=== PATIENT | female | born 1980 | race Caucasian/White ===

== ENCOUNTER 2020-12-21 23:19 | Emergency (ER) | payer OTHER ==
[~2020-12-21 23:19] MED LIST: ANTIVERT25 MG PO; HYOSCYAMINE0.125 MG PO; INDERAL20 MG PO; KLONOPIN0.5 MG PO; LATUDA20 MG PO; LYRICA75 MG PO; NAPROXEN500 MG PO; ONDANSETRON ODT4 MG SL; PERCOCET 10/321 EACH PO; PHENERGAN25 M1 PO; PROZAC20 MG PO; TESSALON PERLE100 M1 PO; TOPROL XL 50 MG50 MG PO; TRAZODONE 50MG50 MG PO; ZOFRAN8 MG PO; ZPAK PO
[2020-12-22 00:17] LABS: BASOPHIL 0.5 % (0-2); EOSINOPHIL 3.4 % (0-5); HCT 40.6 % (37.0-47.0); HGB 13.8 g/dl (12.5-16.0); LYMPHOCYTE 36.7 % (15-48); MCH 31.9 pg (25.0-31.0); MCV 93.8 fL (78.0-100.0); MONOCYTE 6.2 % (0-12); MPV 10.4 fL (6.0-9.5); NEUTROPHIL 52.9 % (41-80); NRBC 0; PLT 322 K/uL (150-400); RBC 4.33 M/uL (4.20-5.40); RDW 12.7 % (11.5-14.0); WBC 10.8 K/uL (4.0-10.5)
[2020-12-22 00:47] LABS: ALBUMIN 3.6 g/dL (3.4-5.0); BILIRUBIN - TOTAL 0.5 mg/dL (0.2-1.0); BUN/CREAT RATIO (CALC) 19.7 RATIO; CREATININE 0.66 mg/dL (0.51-0.95); GLOBULIN (CALCULATION) 3.6 g/dL; POTASSIUM 4.3 mmol/L (3.5-5.1); TOTAL PROTEIN 7.2 g/dL (6.4-8.2)
[2020-12-22 00:58] LABS: BILIRUBIN NEGATIVE (NEGATIVE); BLOOD 2+ Ery/uL (NEGATIVE); CLARITY CLEAR (CLEAR); COLOR YELLOW (YELLOW); GLUCOSE (U) NORMAL (NORMAL); LEUKOCYTES NEGATIVE Leu/uL (NEGATIVE); NITRITE NEGATIVE (NEGATIVE); PROTEIN NEGATIVE (NEGATIVE); UROBILINOGEN 0.2 mg/dL (0.2-1.0)
[2020-12-22 01:09] LABS: BACTERIA 1+; URINARY WBC RARE
[2020-12-22] MEDS ORDERED: NAPROSYN375 MG PO (02:16)
[2020-12-22] MEDS ORDERED: KEFLEX250 MG PO (02:16)
== END 2020-12-22 02:20 | disposition home or self-care (01) ==
LOC: FER 23:19
PROVIDERS: Emergency Medicine
DX: N20.0 Calculus of kidney (principal); Z90.49 Acquired absence of other specified parts of digestive tract; Z88.2 Allergy status to sulfonamides
CPT/HCPCS: 36415; 80053; 81001; 82150; 85025; J2270; J2405; J7030

== ENCOUNTER 2021-01-05 06:11 | Emergency (ER) | payer OTHER ==
[~2021-01-05 06:11] MED LIST changes: +KEFLEX250 MG PO; +NAPROSYN375 MG PO
[2021-01-05 06:52] LABS: BASOPHIL 0.4 % (0-2); EOSINOPHIL 1.3 % (0-5); HCT 41.5 % (37.0-47.0); LYMPHOCYTE 23.4 % (15-48); MCH 31.5 pg (25.0-31.0); MCHC 33.7 g/dL (32.0-36.0); MCV 93.3 fL (78.0-100.0); MONOCYTE 6.8 % (0-12); MPV 10.2 fL (6.0-9.5); NEUTROPHIL 67.6 % (41-80); NRBC 0; PLT 357 K/uL (150-400); RBC 4.45 M/uL (4.20-5.40); RDW 12.6 % (11.5-14.0); WBC 14.1 K/uL (4.0-10.5)
[2021-01-05 07:07] LABS: BILIRUBIN - TOTAL 0.7 mg/dL (0.2-1.0); CREATININE 0.65 mg/dL (0.51-0.95); GLOBULIN (CALCULATION) 3.6 g/dL; POTASSIUM 4.1 mmol/L (3.5-5.1); TOTAL PROTEIN 7.6 g/dL (6.4-8.2)
[2021-01-05 08:08] LABS: BILIRUBIN NEGATIVE (NEGATIVE); BLOOD NEGATIVE Ery/uL (NEGATIVE); CLARITY CLEAR (CLEAR); COLOR YELLOW (YELLOW); GLUCOSE (U) NORMAL (NORMAL); LEUKOCYTES NEGATIVE Leu/uL (NEGATIVE); NITRITE NEGATIVE (NEGATIVE); PROTEIN NEGATIVE (NEGATIVE); SPECIFIC GRAVITY 1.025 (1.001-1.030); UROBILINOGEN 0.2 mg/dL (0.2-1.0); pH 5.5 (5.0-9.0)
[2021-01-05 08:10] LABS: AMPHETAMINES NEGATIVE (NEGATIVE); BARBITURATES NEGATIVE (NEGATIVE); ECSTASY (MDMA) NEGATIVE (NEGATIVE); MARIJUANA (THC) NEGATIVE (NEGATIVE); METHADONE NEGATIVE (NEGATIVE); OPIATES POSITIVE (NEGATIVE); OXYCODONE NEGATIVE (NEGATIVE)
[2021-01-05] MEDS ORDERED: ONDANSETRON ODT4 MG PO (08:25)
== END 2021-01-05 08:35 | disposition home or self-care (01) ==
LOC: FER 06:11
PROVIDERS: Emergency Medicine
DX: B34.9 Viral infection, unspecified (principal); R00.0 Tachycardia, unspecified; R06.2 Wheezing; I10 Essential (primary) hypertension; E66.9 Obesity, unspecified; Z79.899 Other long term (current) drug therapy; Z88.2 Allergy status to sulfonamides; Z20.822 Contact with and (suspected) exposure to COVID-19
CPT/HCPCS: 36415; 71045; 80053; 80305; 81003; 82550; 84484; 85025; 93005; J1885; J2405; J7030; U0002

== ENCOUNTER 2021-02-22 14:43 | Emergency (ER) | payer OTHER ==
[~2021-02-22 14:43] MED LIST changes: +ONDANSETRON ODT4 MG PO
[2021-02-22 16:55] LABS: BASOPHIL 0.4 % (0-2); EOSINOPHIL 6.1 % (0-5); HCT 44.5 % (37.0-47.0); HGB 14.7 g/dl (12.5-16.0); LYMPHOCYTE 35.4 % (15-48); MCH 30.9 pg (25.0-31.0); MCV 93.5 fL (78.0-100.0); MONOCYTE 7.5 % (0-12); NEUTROPHIL 50.2 % (41-80); NRBC 0; PLT 354 K/uL (150-400); RBC 4.76 M/uL (4.20-5.40); RDW 12.7 % (11.5-14.0); WBC 8.4 K/uL (4.0-10.5)
[2021-02-22 17:04] LABS: BUN/CREAT RATIO (CALC) 23.8 RATIO; CREATININE 0.63 mg/dL (0.51-0.95)
[2021-02-22 17:50] LABS: CORONAVIRUS 2019 SARS-COV-2 NEGATIVE (NEGATIVE); INFLUENZA A NAA NEGATIVE (NEGATIVE)
== END 2021-02-22 18:25 | disposition home or self-care (01) ==
LOC: FER 14:43
PROVIDERS: Emergency Medicine
DX: J04.0 Acute laryngitis (principal); I10 Essential (primary) hypertension; Z88.8 Allergy status to other drugs, medicaments and biological substances; Z88.5 Allergy status to narcotic agent; Z88.2 Allergy status to sulfonamides; Z20.822 Contact with and (suspected) exposure to COVID-19
CPT/HCPCS: 36415; 71046; 80048; 85025; 87880; J2930; U0002

== ENCOUNTER 2021-04-10 08:31 | Emergency (ER) | payer OTHER ==
[2021-04-10 09:36] LABS: BILIRUBIN 1+ mg/dL (NEGATIVE); BLOOD TRACE-INTACT Ery/uL (NEGATIVE); COLOR YELLOW (YELLOW); GLUCOSE (U) NORMAL (NORMAL); LEUKOCYTES 3+ Leu/uL (NEGATIVE); NITRITE NEGATIVE (NEGATIVE); PROTEIN TRACE (LOW) mg/dL (NEGATIVE); SPECIFIC GRAVITY 1.015 (1.001-1.030)
[2021-04-10 09:39] LABS: CLARITY HAZY (CLEAR)
[2021-04-10 09:48] LABS: BACTERIA 1+; SQUAMOUS EPITHELIAL CELLS 20-50; URINARY RBC RARE
[2021-04-10 09:54] LABS: BASOPHIL 0.5 % (0-2); EOSINOPHIL 3.8 % (0-5); HCT 42.7 % (37.0-47.0); HGB 14.3 g/dl (12.5-16.0); MCH 31.5 pg (25.0-31.0); MCHC 33.5 g/dL (32.0-36.0); MCV 94.1 fL (78.0-100.0); MONOCYTE 8.9 % (0-12); MPV 11.1 fL (6.0-9.5); NEUTROPHIL 53.6 % (41-80); NRBC 0; PLT 281 K/uL (150-400); RBC 4.54 M/uL (4.20-5.40); RDW 12.8 % (11.5-14.0); WBC 8.2 K/uL (4.0-10.5)
[2021-04-10 10:08] LABS: ALBUMIN 3.7 g/dL (3.4-5.0); BUN/CREAT RATIO (CALC) 19.1 RATIO; CREATININE 0.68 mg/dL (0.51-0.95); GLOBULIN (CALCULATION) 3.1 g/dL; POTASSIUM 4.3 mmol/L (3.5-5.1); TOTAL PROTEIN 6.8 g/dL (6.4-8.2)
[2021-04-10] MEDS ORDERED: CEPHALEXIN500 MG PO (12:47)
[2021-04-10] MEDS ORDERED: PYRIDIUM100 MG PO (12:47)
[2021-04-11 20:10] LABS: CHLAMYDIA TRACHOMATIS, NAA Negative (Negative); NEISSERIA GONORRHOEAE, NAA Negative (Negative)
== END 2021-04-10 13:05 | disposition home or self-care (01) ==
LOC: FER 08:31
PROVIDERS: Emergency Medicine
DX: N39.0 Urinary tract infection, site not specified (principal); E11.9 Type 2 diabetes mellitus without complications; Z88.2 Allergy status to sulfonamides
CPT/HCPCS: 36415; 80053; 81001; 83690; 85025; 87088; 87210; 87491; 87591; J2270; J2405

== ENCOUNTER 2021-04-15 13:36 | Emergency (ER) | payer OTHER ==
[~2021-04-15 13:36] MED LIST changes: +CEPHALEXIN500 MG PO; +PYRIDIUM100 MG PO
[2021-04-15] MEDS ORDERED: ONDANSETRON ODT4 MG PO (14:26)
== END 2021-04-15 14:40 | disposition home or self-care (01) ==
LOC: FER 13:36
DX: B34.9 Viral infection, unspecified (principal); I10 Essential (primary) hypertension; E11.9 Type 2 diabetes mellitus without complications; Z88.2 Allergy status to sulfonamides; Z20.822 Contact with and (suspected) exposure to COVID-19
CPT/HCPCS: 99284; U0002

== ENCOUNTER 2021-08-20 12:00 | Emergency (ER) | payer OTHER ==
[2021-08-20 13:24] LABS: BASOPHIL 0.3 % (0-2); EOSINOPHIL 3.7 % (0-5); HCT 44.5 % (37.0-47.0); HGB 15.4 g/dl (12.5-16.0); LYMPHOCYTE 33.3 % (15-48); MCH 32.4 pg (25.0-31.0); MCHC 34.6 g/dL (32.0-36.0); MCV 93.7 fL (78.0-100.0); MONOCYTE 5.5 % (0-12); NEUTROPHIL 56.8 % (41-80); NRBC 0; PLT 380 K/uL (150-400); RBC 4.75 M/uL (4.20-5.40); RDW 12.2 % (11.5-14.0); WBC 14.1 K/uL (4.0-10.5)
[2021-08-20 13:32] LABS: BUN/CREAT RATIO (CALC) 23.2 RATIO; CREATININE 0.69 mg/dL (0.51-0.95)
[2021-08-20 14:04] LABS: BILIRUBIN NEGATIVE (NEGATIVE); BLOOD NEGATIVE Ery/uL (NEGATIVE); CLARITY CLEAR (CLEAR); COLOR YELLOW (YELLOW); GLUCOSE (U) NORMAL (NORMAL); LEUKOCYTES NEGATIVE Leu/uL (NEGATIVE); NITRITE NEGATIVE (NEGATIVE); PROTEIN NEGATIVE (NEGATIVE); SPECIFIC GRAVITY 1.025 (1.001-1.030); UROBILINOGEN 0.2 mg/dL (0.2-1.0); pH 6.5 (5.0-9.0)
[2021-08-20 14:31] LABS: LACTIC ACID 1.2 mmol/L (0.4-1.9)
[2021-08-20] MEDS ORDERED: NAPROXEN500 MG PO (15:45)
[2021-08-20] MEDS ORDERED: KEFLEX250 MG PO (15:45)
[2021-08-20] MEDS ORDERED: BACLOFEN 10MG T10 MG PO (15:45)
== END 2021-08-20 17:00 | disposition home or self-care (01) ==
LOC: FER 12:00
PROVIDERS: Nurse Practitioner Family
DX: L02.411 Cutaneous abscess of right axilla (principal); R53.83 Other fatigue; M54.2 Cervicalgia; E11.9 Type 2 diabetes mellitus without complications; Z87.891 Personal history of nicotine dependence; Z88.0 Allergy status to penicillin; Z88.2 Allergy status to sulfonamides; Z88.6 Allergy status to analgesic agent
CPT/HCPCS: 36415; 71045; 80048; 81003; 83605; 85025; 93005

== ENCOUNTER 2021-08-23 21:16 | Emergency (ER) | payer OTHER ==
[~2021-08-23 21:16] MED LIST changes: +BACLOFEN 10MG T10 MG PO
[2021-08-23 22:36] LABS: BASOPHIL 0.3 % (0-2); EOSINOPHIL 3.6 % (0-5); HCT 39.9 % (37.0-47.0); HGB 13.8 g/dl (12.5-16.0); LYMPHOCYTE 39.1 % (15-48); MCH 32.4 pg (25.0-31.0); MCHC 34.6 g/dL (32.0-36.0); MCV 93.7 fL (78.0-100.0); MONOCYTE 5.9 % (0-12); MPV 10.2 fL (6.0-9.5); NEUTROPHIL 50.9 % (41-80); NRBC 0; PLT 311 K/uL (150-400); RBC 4.26 M/uL (4.20-5.40); RDW 12.1 % (11.5-14.0); WBC 11.9 K/uL (4.0-10.5)
[2021-08-23 22:59] LABS: ALBUMIN 3.7 g/dL (3.4-5.0); BILIRUBIN - TOTAL 0.7 mg/dL (0.2-1.0); BUN/CREAT RATIO (CALC) 22.5 RATIO; CREATININE 0.71 mg/dL (0.51-0.95); GLOBULIN (CALCULATION) 3.1 g/dL; MAGNESIUM 1.9 mg/dL (1.8-2.4); POTASSIUM 4.3 mmol/L (3.5-5.1); TOTAL PROTEIN 6.8 g/dL (6.4-8.2)
[2021-08-23] MEDS ORDERED: ONDANSETRON ODT4 MG PO (23:15)
== END 2021-08-24 00:01 | disposition home or self-care (01) ==
LOC: FER 21:16
PROVIDERS: Nurse Practitioner Family
DX: F41.9 Anxiety disorder, unspecified (principal); K59.00 Constipation, unspecified; E11.9 Type 2 diabetes mellitus without complications; I10 Essential (primary) hypertension; Z53.29 Procedure and treatment not carried out because of patient's decision for other reasons; Z86.16 Personal history of COVID-19; Z88.0 Allergy status to penicillin; Z88.2 Allergy status to sulfonamides; Z88.6 Allergy status to analgesic agent; Z79.84 Long term (current) use of oral hypoglycemic drugs
CPT/HCPCS: 36415; 80053; 83735; 85025; 99284; J7120

== ENCOUNTER 2022-04-01 14:49 | Emergency (ER) | payer OTHER ==
[2022-04-01 16:18] LABS: BILIRUBIN NEGATIVE (NEGATIVE); BLOOD TRACE-INTACT Ery/uL (NEGATIVE); CLARITY CLEAR (CLEAR); COLOR YELLOW (YELLOW); GLUCOSE (U) NORMAL (NORMAL); LEUKOCYTES 1+ Leu/uL (NEGATIVE); NITRITE NEGATIVE (NEGATIVE); PROTEIN NEGATIVE (NEGATIVE); UROBILINOGEN 0.2 mg/dL (0.2-1.0)
[2022-04-01 16:28] LABS: BACTERIA TRACE
[2022-04-01] MEDS ORDERED: VIBRAMYCIN100 MG PO (18:28)
[2022-04-03 06:10] LABS: CHLAMYDIA TRACHOMATIS, NAA Negative (Negative); NEISSERIA GONORRHOEAE, NAA Negative (Negative)
== END 2022-04-01 18:39 | disposition home or self-care (01) ==
LOC: FER 14:49
PROVIDERS: Nurse Practitioner Family
DX: B37.9 Candidiasis, unspecified (principal); F17.210 Nicotine dependence, cigarettes, uncomplicated; Z88.2 Allergy status to sulfonamides; Z20.2 Contact with and (suspected) exposure to infections with a predominantly sexual mode of transmission
CPT/HCPCS: 81001; 87088; 87491; 87591; J0696